=== PATIENT | female | born 2000 | race Caucasian/White ===

== ENCOUNTER 2025-01-06 16:46 | Emergency (ER) | payer OTHER ==
[~2025-01-06] VITALS: Ht 160 cm; Wt 68.2 kg
[2025-01-06 16:54] VITALS: TEMP 99.1
[2025-01-06 20:11] LABS: BASO # 0.0 10^3/uL (0.0-0.2); BASO % 0.3 % (0.0-1.0); EOS # 0.2 10^3/uL (0.0-0.5); EOS % 1.2 % (0.0-3.0); LYMPH # 1.4 10^3/uL (1.5-5.0); LYMPH % 10.9 % (24.0-44.0); MONO # 1.0 10^3/uL (0.0-0.8); MONO % 7.6 % (2.0-8.0); NEUTROPHILS # 10.5 10^3/uL (1.5-8.5); NEUTROPHILS % 79.4 % (36.0-66.0); PLATELET COUNT, AUTOMATED 224 10^3/uL (150-450)
[2025-01-06 20:19] LABS: KETONE, URINE AUTO RFX NEGATIVE (NEGATIVE); RBC, URINE AUTO RFX 1 /HPF (0-3); SQUAM EPITHELIAL CELL UR AURFX 8 /HPF (0-6)
[2025-01-06 20:22] LABS: LEUKOCYTE ESTERASE UR AUTO RFX 3+ (NEGATIVE); NITRITE, URINE AUTO RFX POSITIVE (NEGATIVE); WBC, URINE AUTO RFX 161 /HPF (0-3)
[2025-01-06 20:35] LABS: ERYTHROCYTE SEDIMENTATION RATE 68 mm/hr (0-20)
[2025-01-06 21:00] LABS: ALT/SGPT 130 U/L (7.0-40); AST/SGOT 55 U/L (<34); CALCIUM LEVEL 8.8 MG/DL (8.5-10.1); CARBON DIOXIDE LEVEL 25.1 MMOL/L (20-31); CHLORIDE LEVEL 104 MMOL/L (98-107); CREATININE FOR GFR 0.71 MG/DL (0.55-1.30); GLOMERULAR FILTRATION RATE > 90.0 (>60); POTASSIUM SERUM 3.4 MMOL/L (3.5-5.1); SODIUM LEVEL 141 MMOL/L (136-145)
[2025-01-06 21:01] LABS: C REACTIVE PROTEIN QUANTITATIV 18.75 MG/DL (<1.0)
[2025-01-06 22:30] VITALS: BP 109/77; O2SAT 97
[2025-01-06] MEDS ORDERED: CIPR500T39 PO (22:51)
[2025-01-06] MEDS: CIPROFLOXACIN 500 MG TABLET PO ONE (22:54)
[2025-01-06 23:32] LABS: HCG, SERUM QUANTITATIVE < 2.6 MIU/ML (<4.2)
== END 2025-01-06 22:57 | disposition home or self-care (01) ==
LOC: M ED 16:46
DX: N10 Acute pyelonephritis (principal); N20.0 Calculus of kidney; M41.50 Other secondary scoliosis, site unspecified; Z88.5 Allergy status to narcotic agent; Z79.2 Long term (current) use of antibiotics